=== PATIENT | female | born 1960 | race Caucasian/White ===

== ENCOUNTER 2017-04-21 09:09 | Emergency (ER) | payer BC ==
--- NOTE | 2017-04-21 10:00 | RADIOLOGY REPORT ---
HISTORY: Trauma with left ankle pain. COMPARISON: None FINDINGS: 3 views of the left ankle reveal an acute minimal displaced oblique fracture through the distal fibul a metaphysis. There is slight widening of the medial ankle mortise. There is moderate lateral soft ti ssue swelling. There is no other acute fracture, dislocation or significant arthritic changes. There is mild calcane al spur formation at the attachment of plantar fascia. IMPRESSION: Acute minimal displaced lateral malleolar fracture with mild widening of the medial ankle mortise. Final Electronic Signature: This report was electronically signed by Alfa Benitez MD on 017 9:58 AM. yaron /
--- NOTE | 2017-04-21 10:12 | ER NURSING DOCUMENTATION ---
Nurse's Notes [facility] Name:Caitlin Sosa Age:56 yrs Sex:Female :1960 Arrival Date:04/21/2017 Time:09:09 BedPortable Radiology Private MD: Diagnosis:Distal Fibula Fracture Presentation: 04/21 09:12 Acuity: LUISA 4 tg 09:22 Presenting complaint: Patient states: slipped on ice while hiking and twisted left sc1 ankle. Transition of care: patient was not received from another setting of care. Notified ED Physician of patient's arrival and CC Dr. Al notified. 09:22 Method Of Arrival: Private Vehicle co1 Triage Assessment: 09:23 General: Appears in no apparent distress, well developed, well nourished, well groomed, sc1 Behavior is cooperative, pleasant. Pain: Complains of pain in left lateral ankle. Historical: - Allergies: No known drug Allergies; - Home Meds: 1. Allergy pills - Ebola Screening: : Patient negative for fever greater than or equal to 101.5 degrees Fahrenheit, and additional compatible Ebola Virus Disease symptoms. Patient denies exposure to infectious person. Patient denies travel to an Ebola-affected area in the 21 days before illness onset. No symptoms or risks identified at this time. . - Immunization history: Flu Vaccine None. - Social history: Smoking status: Patient states was never smoker of tobacco. Patient/guardian denies using alcohol, street drugs, IV drugs, marijuana. Screenin:24 Infectious Disease Risk None. Abuse screen: Denies threats or abuse. Nutritional sc1 screening: No deficits noted. Vital Signs: 09:16 BP 131 / 68; Pulse 106; Resp 16; Temp 98.3; Pulse Ox 95% ; Weight 87.54 kg; Height 5 jt ft. 6 in. (167.64 cm); Pain 6/10; 09:16 Body Mass Index 31.15 (87.54 kg, 167.64 cm) jt ED Course: 09:11 Patient arrived in ED. jt1 09:12 Fredy Dickson RN is Primary Nurse. tg 09:13 Triage completed. tg 09:16 Primary Nurse role handed off by Fredy Dickson RN sc1 09:16 Eunice Brady RN is Primary Nurse. sc1 09:16 Sundar Al MD is Attending Physician. sc 09:24 Notified ED Physician of patient's arrival and chief complaint. Dr. Al notified. Arm co1 band placed on Bed in low position Call Light in Reach. Affected limb iced. Affected limb elevated. 10:02 Assist Provider Splinting. co1 Administered Medications: No medications were administered Outcome: 10:03 Discharge ordered by . co 10:10 Discharged to home ambulatory, with crutches. [facility] [place] 10:10 Condition: stable 10:10 Discharge instructions given to patient, Instructed on discharge instructions, follow up and referral plans. [facility] Demonstrated understanding of instructions, crutch walking. 10:11 Patient left the ED. [facility] [place] 04/22 14:16 Discharge F/U Call: Unable to reach: left voicemail: Signatures: Fredy Dickson RN RN Laura Meza, RN RN Eunice Lane RN RN [facility] [place] Sundar Al MD MD sc [place], David dnn Tennant, Joanne jt tennant-bobo, renae baker
--- NOTE | 2017-04-21 10:12 | ER PHYSICIAN DOCUMENTATION ---
Physician Documentation [facility] Name:Caitlin Sosa Age:56 yrs Sex:Female :1960 Arrival Date:04/21/2017 Time:09:09 BedPortable Radiology Private MD: Sundar Irizarry Disposition: 04/21/17 10:03 Discharged to Home/Self Care. Impression: Distal Fibula Fracture. - Condition is Good. - Discharge Instructions: ANKLE FRACTURE (Distal Fibula), closed. - Medical Reconciliation form form. - Follow up: Private Physician; When: 4- 6 days; Reason: Continuance of care. - Problem is new. - Symptoms have improved. HPI: 04/21 10:00 This 56 yrs old Female presents to ER via Private Vehicle with complaints of sc Ankle Injury. 10:00 The patient presents with an injury. The complaints affect the right ankle. Onset: The sc symptom(s)/episode began/occurred just prior to arrival. Context: The problem was sustained outdoors, resulted from a mis-step by the patient, The mechanism of injury involved inversion of the affected ankle. The patient can partially bear weight on the affected extremity. must have assistance. Associated signs and symptoms: The patient has no apparent associated signs or symptoms. Compartment Syndrome symptoms: negative for numbness, negative for severe pain, negative for tingling. Historical: - Allergies: No known drug Allergies; - Home Meds: 1. Allergy pills - Ebola Screening: : Patient negative for fever greater than or equal to 101.5 degrees Fahrenheit, and additional compatible Ebola Virus Disease symptoms. Patient denies exposure to infectious person. Patient denies travel to an Ebola-affected area in the 21 days before illness onset. No symptoms or risks identified at this time. . - Immunization history: Flu Vaccine None. - Social history: Smoking status: Patient states was never smoker of tobacco. Patient/guardian denies using alcohol, street drugs, IV drugs, marijuana. ROS: 10:01 Constitutional: Negative for fever, chills, and weight loss. sc Eyes: Negative for injury, pain, redness, and discharge. Neck: Negative for injury, pain, and swelling. Cardiovascular: Negative for chest pain, palpitations, and edema. Respiratory: Negative for shortness of breath, cough, wheezing, and pleuritic chest pain. Back: Negative for injury and pain. Skin: Negative for injury, rash, and discoloration. 10:01 Neuro: Negative for headache, weakness, numbness, tingling, and seizure. sc 10:01 MS/extremity: Positive for injury or acute deformity. Exam: Constitutional: This is a well developed, well nourished patient who is awake, alert, and in no acute distress. Head/Face: Normocephalic, atraumatic. Eyes: Pupils equal round and reactive to light, extra-ocular motions intact. Lids and lashes normal. Conjunctiva and sclera are non-icteric and not injected. Cornea within normal limits. Periorbital areas with no swelling, redness, or edema. Neck: Trachea midline, no thyromegaly or masses palpated, and no cervical lymphadenopathy. Supple, full range of motion without nuchal rigidity, or vertebral point tenderness. No meningismus. Cardiovascular: Regular rate and rhythm with a normal S1 and S2. No gallops, murmurs, or rubs. Normal PMI, no JVD. No pulse deficits. Respiratory: Lungs have equal breath sounds bilaterally, clear to auscultation and percussion. No rales, rhonchi or wheezes noted. No increased work of breathing, no retractions or nasal flaring. Skin: Warm, dry with normal turgor. Normal color with no rashes, no lesions, and no evidence of cellulitis. 10:01 Neuro: Awake and alert, GCS 15, oriented to person, place, time, and situation. sc Cranial nerves II-XII grossly intact. Motor strength 5/5 in all extremities. Sensory grossly intact. Cerebellar exam normal. Normal gait. 10:01 Musculoskeletal/extremity: Extremities: grossly normal except: pain, ROM: limited active range of motion due to pain, limited passive range of motion due to pain, Circulation is intact in all extremities. Sensation intact. Vital Signs: 09:16 BP 131 / 68; Pulse 106; Resp 16; Temp 98.3; Pulse Ox 95% ; Weight 87.54 kg; Height 5 jt ft. 6 in. (167.64 cm); Pain 6/10; 09:16 Body Mass Index 31.15 (87.54 kg, 167.64 cm) jt MDM: 09:17 Patient medically screened. mi 10:02 Differential diagnosis: fracture, sprain. Data reviewed: vital signs, nurses notes, sc radiologic studies, and as a result, I will discharge patient. Counseling: I had a detailed discussion with the patient and/or guardian regarding: the historical points, exam findings, and any diagnostic results supporting the discharge/admit diagnosis, radiology results, the need for outpatient follow up, for a referral to a specialist. Response to treatment: the patient's symptoms have markedly improved after treatment. 04/21 10:02 Order name: ANKLE; 3[place] [id number] EDMN 04/21 10:00 Order name: Elevate and Ice Pack; Complete Time: 10:10 mi 04/21 10:00 Order name: ORTHO: Crutches & Training; Complete Time: 10:10 mi 04/21 10:00 Order name: Walking Boot; Complete Time: 10:10 mi Dispensed Medications: No medications were administered Signatures: Eunice Brday RN RN mi1 Sundar Al MD MD mi
== END 2017-04-21 10:12 | disposition home or self-care (01) ==
LOC: ER 09:09
DX: S89.302A Unspecified physeal fracture of lower end of left fibula, initial encounter for closed fracture (principal); W18.49XA Other slipping, tripping and stumbling without falling, initial encounter; Y92.89 Other specified places as the place of occurrence of the external cause; Y93.01 Activity, walking, marching and hiking
CPT/HCPCS: 99283